=== PATIENT | female | born 1990 | race Caucasian/White ===

== ENCOUNTER 2019-09-03 13:00 | Emergency (ER) | payer BC, OTHER ==
--- NOTE | 2019-09-03 13:13 | UC ---
Throat Pain/Nasal Francois HPI - HPI Summary HPI Summary: 28 yo female presents with sore throat and fever. She tells me that for the last 2 days she has had a sore throat, fever, fatigue, body aches, and headache. Today she noticed nena blood in her urine. She has a history of HSP and IGA Nephropathy and states that whenever she gets sick she gets nena blood in her urine that usually clears when she starts feeling better. She has been taking tylenol OTC with good relief of her fever. She is tolerating po well, but does have some nausea. She denies SOB, chest pain, abdominal pain, vomiting , diarrhea, back or flank pain, or rash. - History of Current Complaint Stated Complaint: SORE THROAT Time Seen by Provider: 09/03/19 13:13 Hx Obtained From: Patient Onset/Duration: Sudden Onset Severity: Moderate Pain Intensity: 7 Pain Scale Used: 0-10 Numeric - Allergies/Home Medications Allergies/Adverse Reactions: Allergies Allergy/AdvReac Type Severity Reaction Status Date / Time amoxicillin Allergy Rash Verified 09/03/19 13:11 Home Medications: Home Medications Lisinopril TAB* [Prinivil TAB*] 2.5 mg PO DAILY 09/03/19 [History Confirmed ] PMH/Surg Hx/FS Hx/Imm Hx - Additional Past Medical History Additional PMH: IGA nephropathy HSP - Family History Known Family History: Positive: None - Social History Occupation: Employed Full-time Lives: With Family Alcohol Use: Occasionally Substance Use Type: None Smoking Status (MU): Never Smoked Tobacco Review of Systems All Other Systems Reviewed And Are Negative: No Constitutional: Positive: Fever, Fatigue, Other - Body aches Skin: Positive: Negative Eyes: Positive: Negative ENT: Positive: Sore Throat Respiratory: Positive: Negative Cardiovascular: Positive: Negative Gastrointestinal: Positive: Negative Genitourinary: Positive: Negative Neurovascular: Positive: Negative Musculoskeletal: Positive: Negative Neurological: Positive: Headache Psychological: Positive: Negative Physical Exam - Summary Physical Exam Summary: GENERAL: NAD. WDWN. SKIN: No rashes, sores, or open wounds. HEENT: Head: AT/NC Eyes: PERRLA. EOM intact. Conjunctiva clear without inflammation or discharge. Ears: Hearing grossly normal. TMs intact, no bulging, erythema, or edema. Nose: Nasal mucosa pink and moist. NTTP maxillary and frontal sinus. Throat: Posterior oropharynx with moderate erythema and 3+ tonsillar enlargement with moderate exudates. Uvula midline. NECK: Supple. Nontender. No lymphadenopathy. CHEST: CTAB. No r/r/w. No accessory muscle use. Breathing comfortably and in no distress. CV: RRR. Pulses intact. Brisk cap refill. ABDOMEN: Soft. NTTP. No distention or guarding. No CVA tenderness. Bowel sounds present NEURO: Alert. PSYCH: Age appropriate behavior. Triage Information Reviewed: Yes Vital Signs: Vital Signs: Temp Pulse Resp BP Pulse Ox 99.4 F 119 15 116/79 98 09/03/19 13:12 09/03/19 13:12 09/03/19 13:12 09/03/19 13:12 09/03/19 13:12 Laboratory Tests 09/03/19 09/03/19 09/03/19 13:19 13:37 13:42 POC Urine Color Brown POC Urine Clarity Turbid POC Urine pH 5.5 POC Ur Specif [place] >= 1.030 POC Urine Protein 3+ A POC Ur Glucose (UA) Negative POC Urine Ketones Trace A POC Urine Blood 3+ A POC Urine Nitrite Negative POC Urine Bilirubin 2+ A POC Urine Urobilinogen 0.2 POC U Leukocyte Esteras Negative Influenza A (Rapid) Negative Influenza B (Rapid) Negative Group A Strep Rapid Negative Vital Signs Reviewed: Yes Throat Pain/Nasal Course/Dx - Course Course Of Treatment: POC strep and flu negative. UA as above. Discussed with pt. She states she has nena blood in her urine when she gets sick and this is not abnormal for her. She has not noticed any rashes and has had no abdominal pain, bleeding, or flank pain. Discussed going to the ER for labwork to assess kidney function and H+H, but pt declined. Will draw for CBC, CMP, and mono here and treat for tonsillitis with clindamycin given that this is safe in all CrCl levels. Strongly advised to go to the ER if she develops worsening symptoms, abdominal pain, flank pain, bleeding, or vomiting. Pt voiced understanding and agrees with the plan - Differential Dx/Diagnosis Provider Diagnosis: Tonsillitis Discharge ED - Sign-Out/Discharge Documenting (check all that apply): Patient Departure All imaging exams completed and their final reports reviewed: No Studies - Discharge Plan Condition: Stable Disposition: HOME Prescriptions: Clindamycin HCl 300 mg PO TID #30 capsule Patient Education Materials: Tonsillitis (ED) Forms: *Gen. Provider Communication Referrals: No Primary Care Phys,NOPCP [Primary Care Provider] - Additional Instructions: If you develop a fever, shortness of breath, chest pain, new or worsening symptoms - please call your PCP or go to the ED immediately. As discussed in the Urgent Care, if you notice a rash, abdominal pain, bleeding , back pain, or worsening symptoms -- please go to the ER immediately for further evaluation. Take the antibiotic as directed Continue tylenol for fever and discomfort Drink plenty of clear fluids! - Billing Disposition and Condition Condition: STABLE Disposition: Home
[2019-09-03 13:17] VITALS: BP 116/79
[2019-09-03 13:54] LABS: Influenza A Molecular NEGATIVE (Negative); Influenza B Molecular NEGATIVE (Negative)
[2019-09-03] MEDS ORDERED: Acetaminophen TAB* 325 MG PO ONE (14:14)
[2019-09-03 18:07] LABS: Hematocrit 39 % (35-47); Hemoglobin 13.2 g/dL (12.0-16.0); Mean Corpuscular HGB Conc 34 g/dL (31-36); Mean Corpuscular Hemoglobin 31 pg (27-31); Mean Corpuscular Volume 91 fL (80-97); Mean Platelet Volume 7.9 fL (7.4-10.4); Platelet Count 228 10^3/uL (150-450); Red Blood Count 4.26 10^6 /uL (3.70-4.87); Red Cell Distribution Width 12 % (10-15); White Blood Count 13.3 10^3/uL (3.5-10.8)
[2019-09-03 18:12] LABS: Albumin 4.3 g/dL (3.2-5.2); Calcium 9.5 mg/dL (8.6-10.3); Potassium 3.8 mmol/L (3.5-5.0); Total Bilirubin 1.5 mg/dL (0.2-1.0)
[2019-09-03 18:18] LABS: Albumin/Globulin Ratio 1.7 (1-3); BUN/Creatinine Ratio 19.4 (8-20); EGFR African American 140.8 (>60); EGFR Non-African American 116.4 (>60); Globulin 2.6 g/dL (2-4); Total Protein 6.9 g/dL (6.4-8.9)
[2019-09-03 18:42] LABS: ABS Eosinophils 0.1 10^3/ul (0-0.6); ABS Lymphocytes 1.3 10^3/ul (1.0-4.8); ABS Monocytes 1.6 10^3/ul (0-0.8); ABS Neutrophils 10.3 10^3/ul (1.5-7.7); Eosinophil % 0.8 %; Lymphocyte % 9.4 %
--- NOTE | 2019-09-04 07:50 | UC ---
- Progress Note Progress Note: labs reveal elev WBCs at 13.3 w/ left shift. mono neg. CMP is non-actionable. slight bilirubin elevation could be gilbert's disease (benign) but should be followed up on w/ her PCP for further testing. + IgA nephropathy & HSP disease caused gross hematuria w/ illnesses per notes. -she was treated w/ clindamycin for tonsillitis. -no PCP is specified in note above. If she feels worse or no better, she should go to ER today. otherwise, she should f/u with PCP or intrusion analyst early this week. Please give her some names of PCP if she doesnt have one. Course/Dx - Diagnoses Provider Diagnoses: Tonsillitis Discharge ED - Sign-Out/Discharge Documenting (check all that apply): Patient Departure All imaging exams completed and their final reports reviewed: No Studies - Discharge Plan Condition: Stable Disposition: HOME Prescriptions: Clindamycin HCl 300 mg PO TID #30 capsule Patient Education Materials: Tonsillitis (ED) Forms: *Gen. Provider Communication Referrals: No Primary Care Phys,NOPCP [Primary Care Provider] - Additional Instructions: If you develop a fever, shortness of breath, chest pain, new or worsening symptoms - please call your PCP or go to the ED immediately. As discussed in the Urgent Care, if you notice a rash, abdominal pain, bleeding , back pain, or worsening symptoms -- please go to the ER immediately for further evaluation. Take the antibiotic as directed Continue tylenol for fever and discomfort Drink plenty of clear fluids! - Billing Disposition and Condition Condition: STABLE Disposition: Home
== END 2019-09-03 14:20 | disposition home or self-care (01) ==
LOC: UCCORT 13:00
DX: J03.90 Acute tonsillitis, unspecified (principal); N02.8 Recurrent and persistent hematuria with other morphologic changes; R53.83 Other fatigue; Z88.0 Allergy status to penicillin
CPT/HCPCS: 36415; 80053; 81003; 85025; 86308; 87651; 99202; A9270-GY; G0463